=== PATIENT | female | born 1990 | race African-American/Black ===

== ENCOUNTER 2017-08-10 23:46 | Emergency (ER) | payer OTHER ==
[~2017-08-10] VITALS: Ht 162.6 cm; Wt 56.7 kg
[2017-08-11 00:02] VITALS: BP 117/58
--- NOTE | 2017-08-11 00:15 | PHYS DOC ---
Past Medical History Past Medical History: No Pertinent History Past Surgical History: Other Additional Past Surgical Histo: Exploratory laparotomy Alcohol Use: Occasionally Drug Use: None Adult General Chief Complaint Chief Complaint: HIP PAIN HPI HPI Patient is a 26 year old female who presents with a right lateral hip pain began yesterday when she stepped off a ladder at work. Patient works at [employer]. Patient denies falling. Patient states she currently cannot bare full weight on the RLE, she states she is limping. Review of Systems Review of Systems Constitutional: Denies fever or chills [] GI: Denies abdominal pain, nausea, vomiting, bloody stools or diarrhea [] : Denies dysuria or hematuria [] Musculoskeletal: Right lateral hip pain Integument: Denies rash or skin lesions [] Neurologic: Denies headache, focal weakness or sensory changes [] All other systems were reviewed and found to be within normal limits, except as documented in this note. Allergies Allergies Allergies Coded Allergies Type Severity Reaction Last Updated Verified No Known Drug Allergies 05/03/14 No Physical Exam Physical Exam Constitutional: Well developed, well nourished, no acute distress, non-toxic appearance. [] Skin: Warm, dry, no erythema, no rash. [] Back: No tenderness, no CVA tenderness. [] Extremities: Right hip with no obvious deformity. Slight tenderness on palpation of the right lateral hip. Full passive range of motion to the right hip including flexion and extension, internal rotation and external rotation. + 2 right pedal pulse. Cap refill less than 2 seconds the right lower extremity. Sensation intact to the right lower extremity. Neurologic: Alert and oriented X 3, normal motor function, normal sensory function, no focal deficits noted. [] Psychologic: Affect normal, judgement normal, mood normal. [] Current Patient Data Vital Signs Vital Signs Date Time Temp Pulse Resp B/P (MAP) Pulse Ox O2 Delivery O2 Flow Rate FiO2 08/11/17 00:02 98.1 87 16 98 Room Air 98.1 EKG EKG [] Radiology/Procedures Radiology/Procedures [] Course & Med Decision Making Course & Med Decision Making Pertinent Labs and Imaging studies reviewed. (See chart for details) Patient is in the ED right hip pain that began yesterday after stepping off a ladder at work. She likely has right hip muscle strain. Will be discharged with cyclobenzaprine and naproxen. Follow-up with PCP orthopedic doctor provided in one week. Ice recommended to the area. Elevation recommended. Dragon Disclaimer Dragon Disclaimer This electronic medical record was generated, in whole or in part, using a voice recognition dictation system. Departure Departure Impression: Primary Impression: Strain of right hip Disposition: HOME, SELF-CARE Condition: STABLE Referrals: WALT RHODES MD follow up in one week Patient Instructions: Muscle Strain, [id number] Additional Instructions: You were seen with right hip muscle strain. Ice elevate the affected extremity. Take the prescribed medicines as needed for pain. Do not drive or operate machinery on the pain medicine. Follow-up with your own doctor or the provided orthopedic doctor in 1-2 weeks. Scripts Naproxen (NAPROXEN) 500 Mg Tablet 1 TAB PO BID, #30 TAB 0 Refills Prov: CAITIE WHITFIELD APRN 08/11/17 Cyclobenzaprine Hcl (CYCLOBENZAPRINE HCL) 10 Mg Tablet 1 TAB PO TID, #30 TAB Prov: CAITIE WHITFIELD APRN 08/11/17 Problem Qualifiers Primary Impression: Strain of right hip Encounter type: initial encounter Qualified Codes: S76.011A - Strain of muscle, fascia and tendon of right hip, initial encounter CAITIE WHITFIELD APRN Aug 11, 2017 00:15
[2017-08-11] MEDS ORDERED: CYCL10TA2 PO (00:45)
[2017-08-11] MEDS ORDERED: NAPR500T4 PO (00:45)
== END 2017-08-11 00:51 | disposition home or self-care (01) ==
LOC: ER 23:46
DX: S76.011A Strain of muscle, fascia and tendon of right hip, initial encounter (principal); W11.XXXA Fall on and from ladder, initial encounter; Y93.89 Activity, other specified; Y92.69 Other specified industrial and construction area as the place of occurrence of the external cause; Y99.8 Other external cause status
CPT/HCPCS: 99283

== ENCOUNTER 2019-04-09 10:59 | Emergency (ER) | payer SELFPAY ==
[~2019-04-09] VITALS: Ht 162.6 cm; Wt 59.0 kg
[~2019-04-09 10:59] MED LIST: CYCL10TA2 PO; NAPR-514 PO
[2019-04-09] MEDS ORDERED: IV NORMAL SALINE 1000ML BAG 1,000 ML IV ONE ×2 (12:45→15:15)
[2019-04-09] MEDS ORDERED: diphenhydrAMINE 50 MG/ML VIAL IVP ONE (12:45)
[2019-04-09] MEDS ORDERED: METOCLOPRAMIDE 10 MG TABLET. PO ONE (12:45)
[2019-04-09 13:48] LABS: BASO # 0.1 x10^3/uL (0.0-0.2); BASO % 0 % (0-3); EOS # 0.3 x10^3/uL (0.0-0.7); EOS % 2 % (0-3); HEMATOCRIT 40.9 % (36.0-47.0); HEMOGLOBIN 13.8 g/dL (12.0-15.5); LYMPH # 2.5 x10^3/uL (1.0-4.8); LYMPH % 13 % (24-48); MEAN CORPUSCULAR HEMOGLOBIN 31 pg (25-35); MEAN CORPUSCULAR HGB CONC 34 g/dL (31-37); MEAN CORPUSCULAR VOLUME 91 fL (79-100); MONO # 1.3 x10^3/uL (0.0-1.1); MONO % 7 % (0-9); NEUT # 15.2 x10^3/uL (1.8-7.7); NEUT % 78 % (31-73); PLATELET COUNT 299 x10^3/uL (140-400); RED BLOOD COUNT 4.52 x10^6/uL (3.50-5.40); RED CELL DISTRIBUTION WIDTH 12.8 % (11.5-14.5); WHITE BLOOD COUNT 19.4 x10^3/uL (4.0-11.0)
[2019-04-09 13:54] LABS: BILIRUBIN,URINE SMALL (NEG); CLARITY,URINE CLEAR; COLOR,URINE AMBER; NITRITE,URINE NEGATIVE (NEG); PROTEIN,URINE NEGATIVE (NEG-TRACE)
[2019-04-09 13:58] LABS: CREATININE 0.8 mg/dL (0.6-1.0); GFR 104.1; POTASSIUM 3.3 mmol/L (3.5-5.1)
[2019-04-09 14:03] LABS: BACTERIA,URINE 0 /HPF (0-FEW); SQUAMOUS EPITHELIAL CELL,UR MANY /LPF; WBC,URINE >40 /HPF (0-4)
[2019-04-09 14:04] LABS: TRICHOMONAS,URINE PRESENT
[2019-04-09 14:05] LABS: ALBUMIN 3.4 g/dL (3.4-5.0); ALBUMIN/GLOBULIN RATIO 0.8 (1.0-1.7); PREG TEST PT QUAL NEGATIVE (NEG); TOTAL BILIRUBIN 1.2 mg/dL (0.2-1.0); TOTAL PROTEIN 7.7 g/dL (6.4-8.2)
--- NOTE | 2019-04-09 14:10 | RAD ---
CHEST PA LATERAL History: Cough. Comparison: None. Findings: No consolidation or pleural effusion. Normal heart size. Impression: 1. No acute cardiopulmonary process. Electronically signed by: Larry Child DO (04/09/2019 2:08 PM) [id number]
[2019-04-09 14:24] LABS: % BANDS 9 % (0-9); % EOS 2 % (0-5); % LYMPHS 14 % (24-48); % MONOS 8 % (0-10); % SEGS 67 % (35-66); PLT ESTIMATE ADEQUATE (ADEQUATE)
--- NOTE | 2019-04-09 14:27 | PHYS DOC ---
Past Medical History Past Medical History: No Pertinent History Past Surgical History: Other Additional Past Surgical Histo: Exploratory laparotomy Alcohol Use: Occasionally Drug Use: None Adult General Chief Complaint Chief Complaint: HEADACHE HPI HPI 28-year-old female presenting to the emergency department today with a headache. Her headaches been going on for about 2 weeks. She reports having a recent cold. She describes it as a shooting pain that is mild to moderate nonradiating and without alleviating factors. Review of systems is negative for chest pain shortness of breath abdominal pain nausea vomiting fevers or chills. She denies neck stiffness or nuchal rigidity. All other review of systems is negative. ED course: 28-year-old female presenting with a headache. Heart rate is mildly elevated here in the emergency room. Temperature is mildly elevated but not above 100.4. Blood pressure is mildly elevated. Neurologic exam is unremarkable. We will give her IV fluids with Reglan and Benadryl. White blood cell count is elevated. Chemistry panel is normal. Negative test. Urinalysis shows small leuk esterase. Many squamous cells. No bacteria. Trichomonas present. Elev ated specific gravity. Given her headache with her white blood cell count and a low-grade temperature we did a lumbar puncture. Written consent obtained. Head CT negative prior to lumbar puncture. Procedure was performed and we were able to withdraw the fluid and sent it for analysis. CSF fluid is unremarkable and not suggestive of infection. The patient's headache has improved in the emergency department. Given her Trichomonas in the urine we'll give her 2 g of Flagyl x1 here in ED and Zofran to go home with for nausea. Will need her to follow up with her doctor tomorrow given her elevated white blood cell count to reexamine her. Procedure note: Lumbar puncture: The patient is placed in the left lateral decubitus position. Sterile precautions utilized. 3 attempts. Third attempt shows clear fluid. Sterile dressing placed after procedure. no complications. Current Medications Current Medications Current Medications Medications (Trade) Dose Ordered Sig/Vaughn Start Time Stop Time Status Last Admin Dose Admin Acetaminophen (Tylenol) 650 mg 1X ONCE 04/09/19 16:15 04/09/19 16:16 DC 04/09/19 16:07 650 MG Diphenhydramine HCl (Benadryl) 25 mg 1X ONCE 04/09/19 12:45 04/09/19 12:46 DC 04/09/19 13:22 25 MG Metoclopramide HCl (Reglan) 10 mg 1X ONCE 04/09/19 12:45 04/09/19 12:46 DC 04/09/19 13:22 10 MG Sodium Chloride 1,000 ml @ 1,000 mls/hr 1X ONCE 04/09/19 15:15 04/09/19 16:14 DC 04/09/19 15:39 1,000 MLS/HR Allergies Allergies Allergies Coded Allergies Type Severity Reaction Last Updated Verified No Known Drug Allergies 05/03/14 No Physical Exam Physical Exam Constitutional: Well developed, well nourished, no acute distress, non-toxic appearance. [] HENT: Normocephalic, atraumatic, bilateral external ears normal, oropharynx moist, no oral exudates, nose normal. [] Eyes: PERRLA, EOMI, conjunctiva normal, no discharge. [] Neck: Normal range of motion, no tenderness, supple, no stridor. [] Cardiovascular:Heart rate regular rhythm, no murmur [] Lungs & Thorax: Bilateral breath sounds clear to auscultation [] Abdomen: Bowel sounds normal, soft, no tenderness, no masses, no pulsatile masses. [] Skin: Warm, dry, no erythema, no rash. [] Back: No tenderness, no CVA tenderness. [] Extremities: No tenderness, no cyanosis, no clubbing, ROM intact, no edema. [] Neurologic: Alert and oriented X 3, normal motor function, normal sensory function, no focal deficits noted. [] Psychologic: Affect normal, judgement normal, mood normal. [] Current Patient Data Vital Signs Vital Signs Date Time Temp Pulse Resp B/P (MAP) Pulse Ox O2 Delivery O2 Flow Rate FiO2 04/09/19 14:30 108 92 04/09/19 12:35 99.7 18 165/69 (101) Room Air 99.7 Lab Values Laboratory Tests Test 04/09/19 13:20 04/09/19 13:30 04/09/19 13:43 04/09/19 15:30 White Blood Count 19.4 x10^3/uL (4.0-11.0) H Red Blood Count 4.52 x10^6/uL (3.50-5.40) Hemoglobin 13.8 g/dL (12.0-15.5) Hematocrit 40.9 % (36.0-47.0) Mean Corpuscular Volume 91 fL (79-100) Mean Corpuscular Hemoglobin 31 pg (25-35) Mean Corpuscular Hemoglobin Concent 34 g/dL (31-37) Red Cell Distribution Width 12.8 % (11.5-14.5) Platelet Count 299 x10^3/uL (140-400) Neutrophils (%) (Auto) 78 % (31-73) H Lymphocytes (%) (Auto) 13 % (24-48) L Monocytes (%) (Auto) 7 % (0-9) Eosinophils (%) (Auto) 2 % (0-3) Basophils (%) (Auto) 0 % (0-3) Neutrophils # (Auto) 15.2 x10^3/uL (1.8-7.7) H Lymphocytes # (Auto) 2.5 x10^3/uL (1.0-4.8) Monocytes # (Auto) 1.3 x10^3/uL (0.0-1.1) H Eosinophils # (Auto) 0.3 x10^3/uL (0.0-0.7) Basophils # (Auto) 0.1 x10^3/uL (0.0-0.2) Segmented Neutrophils % 67 % (35-66) H Band Neutrophils % 9 % (0-9) Lymphocytes % 14 % (24-48) L Monocytes % 8 % (0-10) Eosinophils % 2 % (0-5) Platelet Estimate Adequate (ADEQUATE) Sodium Level 137 mmol/L (136-145) Potassium Level 3.3 mmol/L (3.5-5.1) L Chloride Level 101 mmol/L (98-107) Carbon Dioxide Level 24 mmol/L (21-32) Anion Gap 12 (6-14) Blood Urea Nitrogen 7 mg/dL (7-20) Creatinine 0.8 mg/dL (0.6-1.0) Estimated GFR (Cockcroft-Gault) 104.1 BUN/Creatinine Ratio 9 (6-20) Glucose Level 103 mg/dL (70-99) H Calcium Level 9.0 mg/dL (8.5-10.1) Total Bilirubin 1.2 mg/dL (0.2-1.0) H Aspartate Amino Transferase (AST) 10 U/L (15-37) L Alanine Aminotransferase (ALT) 11 U/L (14-59) L Alkaline Phosphatase 69 U/L (46-116) Total Protein 7.7 g/dL (6.4-8.2) Albumin 3.4 g/dL (3.4-5.0) Albumin/Globulin Ratio 0.8 (1.0-1.7) L Serum Test, Qualitative Negative (NEG) Urine Collection Type Unknown Urine Color Ruchi Urine Clarity Clear Urine pH 6.0 Urine Specific Malcolm >=1.030 Urine Protein Negative mg/dL (NEG-TRACE) Urine Glucose (UA) Negative mg/dL (NEG) Urine Ketones (Stick) Trace mg/dL (NEG) Urine Blood Negative (NEG) Urine Nitrite Negative (NEG) Urine Bilirubin Small (NEG) Urine Urobilinogen Dipstick 1.0 mg/dL (0.2 mg/dL) Urine Leukocyte Esterase Small (NEG) Urine RBC 3-5 /HPF (0-2) Urine WBC >40 /HPF (0-4) Urine Squamous Epithelial Cells Many /LPF Urine Bacteria 0 /HPF (0-FEW) Urine Mucus Marked /LPF Urine Trichomonas Present POC Urine HCG, Qualitative Hcg negative (Negative) CSF Color Colorless CSF Clarity Clear CSF WBC 0 /cmm (Not Established) CSF RBC 0 /cmm (Not Established) CSF Glucose 65 mg/dL (37-70) CSF Total Protein 30.5 mg/dL (15.0-45.0) Laboratory Tests 04/09/19 13:20 Laboratory Tests 04/09/19 13:20 EKG EKG [] Radiology/Procedures Radiology/Procedures [] Course & Med Decision Making Course & Med Decision Making Pertinent Labs and Imaging studies reviewed. (See chart for details) [] Dragon Disclaimer Dragon Disclaimer This electronic medical record was generated, in whole or in part, using a voice recognition dictation system. Departure Departure Impression: Primary Impression: Headache Additional Impression: Trichomoniasis Disposition: 01 HOME, SELF-CARE Condition: STABLE Referrals: NO PCP (PCP) ABNER GONZALEZ MD Patient Instructions: General Headache Without Cause, Trichomoniasis Additional Instructions: Thank you for allowing us to participate in your care today. Return to the emergency department you have any new or worsening symptoms, or if you are concerned for any reason. Return to emergency department if you have any new or concerning symptoms including but not limited to fever, chills, nausea, vomiting, intractable pain, any new rashes, chest pain, shortness of air, uncontrolled bleeding, difficulty breathing, and/or vision loss. Follow up with your primary care physician within 1 day. Call your Primary Doctor tomorrow and inform them of your visit today. If you do not have a primary care provider we are happy to provide you with a list of our primary care providers contact information. This condition should be evaluated by your primary care physician and any recommended consulting services for continued management within 2 days after discharge. If at any time, you are having difficulty getting into your primary care doctor or a specialist, return to the emergency department. Scripts Ondansetron Hcl (ZOFRAN) 4 Mg Tablet 1 TAB PO PRN Q6-8HRS, #5 TAB Prov: MARISOL SANCHEZ MD 04/09/19 Problem Qualifiers MARISOL SANCHEZ MD Apr 09, 2019 14:27
--- NOTE | 2019-04-09 14:57 | RAD ---
Examination: CT HEAD WO CONTRAST History: Headache Comparison/Correlation: None Findings: Axial images of the head were obtained without contrast. Sagittal and coronal reformatted images provided. Ventricles are normal size. No intracranial hemorrhage, midline shift, or mass effect. Punctate density at the superior aspect of the third ventricle measuring 0.2 cm diameter is present. Bony structures are unremarkable. Visualized paranasal sinuses are unremarkable. Impression: No intracranial hemorrhage. 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 No suspicious features. No hydrocephalus. PQRS Compliance Statement: One or more of the following individualized dose reduction techniques were utilized for this examination: 1. Automated exposure control 2. Adjustment of the mA and/or kV according to patient size 3. Use of iterative reconstruction technique Electronically signed by: Pedro Beasley MD (04/09/2019 2:55 PM) [facility]
[2019-04-09 16:03] LABS: CSF PROTEIN 30.5 mg/dL (15.0-45.0)
[2019-04-09 16:14] LABS: CSF CLARITY CLEAR; CSF COLOR COLORLESS; CSF RBC COUNT 0 /cmm (Not Established); CSF WBC COUNT 0 /cmm (Not Established)
[2019-04-09] MEDS ORDERED: ACETAMINOPHEN 325 MG TABLET. PO ONE (16:15)
[2019-04-09] MEDS ORDERED: ONDA4TAB7 PO (16:49)
[2019-04-09] MEDS ORDERED: metroNIDAZOLE 500 MG TABLET PO ONE (17:00)
[2019-04-09 17:08] VITALS: BP 120/63
== END 2019-04-09 17:11 | disposition home or self-care (01) ==
LOC: ER 10:59
DX: R51 Headache (principal); A59.9 Trichomoniasis, unspecified
CPT/HCPCS: 36415; 62270; 70450; 71046; 80053; 81001; 81025; 82945; 84157; 84703; 85007; 85025; 87071; 87075; 89051; 96374; 99285; J1200; J7030; J8597

== ENCOUNTER 2019-08-27 21:15 | Emergency (ER) | payer SELFPAY ==
[~2019-08-27] VITALS: Ht 162.6 cm; Wt 63.5 kg
[~2019-08-27 21:15] MED LIST changes: +ONDA4TAB7 PO
[2019-08-27 21:25] VITALS: BP 111/64
--- NOTE | 2019-08-27 22:26 | PHYS DOC ---
Past Medical History Past Medical History: No Pertinent History (ABNER GARCIA APRN) Past Surgical History: Other Additional Past Surgical Histo: Exploratory laparotomy (ABNER GARCIA APRN) Alcohol Use: Occasionally Drug Use: None (ABNER GARCIA APRN) Attending Signature I have participated in the care of this patient and I have reviewed and agree with all pertinent clinical information above including history, exam, and recommendations. (KRISTINA CASTILLO MD) Adult General Chief Complaint Chief Complaint: FLU SYMPTOM HPI HPI Patient is a 28 year old female who presents with headache, loss of appetite, nausea, vomiting, sore throat, runny nose, cough that started at 3 days ago. She has been able to keep fluids down at home. (ABNER GARCIA APRN) Review of Systems Review of Systems Constitutional: Reports fever or chills and body aches. Eyes: Denies change in visual acuity, redness, or eye pain [] HENT: Reports nasal congestion, sore throat, and runny nose. Respiratory: Reports cough. Denies shortness of breath. Cardiovascular: No additional information not addressed in HPI [] GI: Reports nausea. Denies abdominal pain, bloody stools or diarrhea [] : Denies dysuria or hematuria [] Musculoskeletal: Denies back pain or joint pain [] Integument: Denies rash or skin lesions [] Neurologic: Reports headache, denies focal weakness or sensory changes [] Endocrine: Denies polyuria or polydipsia [] Complete systems were reviewed and found to be within normal limits, except as documented in this note. (ABNER GARCIA APRN) Allergies Allergies Allergies Coded Allergies Type Severity Reaction Last Updated Verified No Known Drug Allergies 05/03/14 No (KRISTINA CASTILLO MD) Physical Exam Physical Exam Constitutional: Well developed, well nourished, no acute distress, non-toxic appearance. [] HENT: Normocephalic, atraumatic, bilateral external ears normal, bilateral tympanic membranes are pearly amos, oropharynx moist, no oral exudates, nose turbinates are inflamed. Eyes: PERRLA, EOMI, conjunctiva normal, no discharge. [] Neck: Normal range of motion, no tenderness, supple, no stridor. [] Cardiovascular:Heart rate regular rhythm, no murmur [] Lungs & Thorax: Bilateral breath sounds clear to auscultation [] Abdomen: Bowel sounds normal, soft, no tenderness, no masses, no pulsatile masses. [] Skin: Warm, dry, no erythema, no rash. [] Neurologic: Alert and oriented X 3, normal motor function, normal sensory function, no focal deficits noted. [] Psychologic: Affect normal, judgement normal, mood normal. [] (ABNER GARCIA APRN) Current Patient Data Vital Signs Vital Signs Date Time Temp Pulse Resp B/P (MAP) Pulse Ox O2 Delivery O2 Flow Rate FiO2 08/27/19 21:25 99.3 97 16 111/64 (80) 98 Room Air 99.3 (KRISTINA CASTILLO MD) EKG EKG [] (ABNER GARCIA APRN) Radiology/Procedures Radiology/Procedures [] (ABNER GARCIA APRN) Course & Med Decision Making Course & Med Decision Making Pertinent Labs and Imaging studies reviewed. (See chart for details) The patient appears to have the Flu clinically. Discussed with patient the i mportance of drinking plenty of fluids. I also discussed the importance of rest. It was discussed with the patient that she is contagious and to stay away from others until it has been a week since the start of her symptoms. Discussed with the patient that she can take Zyrtec per label instructions for runny nose. Also discussed the proper control of fever by rotating Tylenol and Ibuprofen at home. Will give the patient Decadron in the ER for symptom control. A medical screening exam was performed on this patient and the patient does not appear to be having a medical emergency. Her symptoms are not of sufficient severity and within reasonable medical probability it is unlikely the absence of immediate medical attention would result in placing the health of the individual (or, with respect to a woman, the health of the woman or her unborn child) in serious jeopardy, serious impairment to bodily functions, or serious dysfunction of any bodily organ or part. If , the patient is not in labor (ABNER GARCIA APRN) Dragon Disclaimer Dragon Disclaimer This electronic medical record was generated, in whole or in part, using a voice recognition dictation system. (ABNER GARCIA APRN) Departure Departure Impression: Primary Impression: Encounter for medical screening examination Additional Impression: Viral syndrome Disposition: HOME, SELF-CARE Condition: STABLE Referrals: NO PCP (PCP) Patient Instructions: Medical Screening Exam, Viral Syndrome Additional Instructions: Thank you for visiting [facility]. We appreciate you trusting us with your care. If any additional problems come up don't hesitate to return to visit us. Please follow up with your primary care provider so they can plan additional care if needed and know about the problem that you had. If symptoms worsen come back to the Emergency Department. Any concerning symptoms that start such as chest pain, shortness of air, weakness or numbness on one side of the body, running high fevers or any other concerning symptoms return to the ER. Please drink plenty of fluids. If unable to keep fluids down please return to ER. Please get Tylenol and Ibuprofen over the counter. Give each medication every 6 hours as directed by the medication labels. In order to utilize the peak of the medications stagger the medications to where the child is getting one of the medications every 3 hours. For example if you give Ibuprofen at 3 PM, you then give Tylenol at 6 PM and Ibuprofen again at 9 PM, and then Tylenol at midnight. Please get Zyrtec over the counter and take per label instructions for runny nose. Problem Qualifiers ABNER GARCIA APRN Aug 27, 2019 22:26 KRISTINA CASTILLO MD Aug 29, 2019 02:53
== END 2019-08-27 22:44 | disposition home or self-care (01) ==
LOC: ER 21:15
DX: B34.9 Viral infection, unspecified (principal); R09.89 Other specified symptoms and signs involving the circulatory and respiratory systems; R05 Cough; R63.0 Anorexia; Z98.890 Other specified postprocedural states
CPT/HCPCS: 99281

== ENCOUNTER 2020-05-21 15:26 | Inpatient (IN) | payer SELFPAY ==
[~2020-05-21] VITALS: Ht 162.6 cm; Wt 64.0 kg
[2020-05-21] MEDS ORDERED: IV NORMAL SALINE 1000ML BAG 1,000 ML IV ONE ×2 (15:45→16:45)
[2020-05-21] MEDS ORDERED: IPRATRPIUM/ALBUTEROL 0.5/2.5MG 3 ML NEBU. NEB ONE (15:45)
[2020-05-21] MEDS ORDERED: methylPREDNISolone SOD SUCC PF 125 MG/2 ML VIAL. IV ONE (15:45)
[2020-05-21] MEDS ORDERED: MAGNESIUM SULFATE 2GM 50 ML IV ONE (15:45)
[2020-05-21 15:51] LABS: BASO # 0.1 x10^3/uL (0.0-0.2); BASO % 1 % (0-3); EOS # 0.4 x10^3/uL (0.0-0.7); EOS % 3 % (0-3); HEMOGLOBIN 14.4 g/dL (12.0-15.5); LYMPH # 0.8 x10^3/uL (1.0-4.8); LYMPH % 6 % (24-48); MEAN CORPUSCULAR HEMOGLOBIN 32 pg (25-35); MEAN CORPUSCULAR HGB CONC 34 g/dL (31-37); MEAN CORPUSCULAR VOLUME 92 fL (79-100); MONO # 0.6 x10^3/uL (0.0-1.1); MONO % 4 % (0-9); NEUT % 87 % (31-73); PLATELET COUNT 258 x10^3/uL (140-400); RED BLOOD COUNT 4.56 x10^6/uL (3.50-5.40); WHITE BLOOD COUNT 13.9 x10^3/uL (4.0-11.0)
--- NOTE | 2020-05-21 15:52 | PHYS DOC ---
Past Medical History Past Medical History: No Pertinent History Past Surgical History: Other Additional Past Surgical Histo: Exploratory laparotomy Smoking Status: Current Every Day Smoker Alcohol Use: Occasionally Drug Use: None General Adult EDM: Chief Complaint: ASTHMA HPI: HPI: The history was obtained from the patient. Patient is a 29-year-old female with PMH asthma who presents with a chief complaint of shortness of breath and wheezing. Patient states her symptoms began earlier today. She states environmental exposures are typically her triggers. She does note that she uses inhaler daily. Denies any recent oral steroids or antibiotic usage. Does note history of hospitalization due to her breathing issues in the past. Denies any history of ventilator requirement. Denies chest pain. Does note increased cough with mild sputum production. Notes nausea without vomiting. Denies syncope. Denies known exposure to coronavirus. No other complaints. Review of Systems: Review of Systems: Constitutional: Denies fever or chills. [] Eyes: Denies change in visual acuity. [] HENT: Denies nasal congestion or sore throat. [] Respiratory: Denies coug positive for shortness of breath and cough Cardiovascular: Denies chest pain or edema. [] GI: Denies abdominal pain, nausea, vomiting, bloody stools or diarrhea. [] : Denies dysuria. [] Musculoskeletal: Denies back pain or joint pain. [] Integument: Denies rash. [] Neurologic: Denies headache, focal weakness or sensory changes. [] Endocrine: Denies polyuria or polydipsia. [] Lymphatic: Denies swollen glands. [] Psychiatric: Denies depression or anxiety. [] Heart Score: Risk Factors: Risk Factors: DM, Current or recent (<one month) smoker, HTN, HLP, family history of CAD, obesity. Risk Scores: Score 0 - 3: 2.5% MACE over next 6 weeks - Discharge Home Score 4 - 6: 20.3% MACE over next 6 weeks - Admit for Clinical Observation Score 7 - 10: 72.7% MACE over next 6 weeks - Early Invasive Strategies Current Medications: Current Medications Medications (Trade) Dose Ordered Sig/Vaughn Start Time Stop Time Status Last Admin Dose Admin Albuterol/ Ipratropium (Duoneb) 9 ml 1X ONCE 05/21/20 15:45 05/21/20 15:46 Magnesium Sulfate 50 ml @ 50 mls/hr 1X ONCE 05/21/20 15:45 05/21/20 16:44 Methylprednisolone Sodium Succinate (SOLU-Medrol 125MG VIAL) 125 mg 1X ONCE 05/21/20 15:45 05/21/20 15:46 Sodium Chloride 1,000 ml @ 1,000 mls/hr 1X ONCE 05/21/20 15:45 05/21/20 16:44 Allergies: Allergies: Allergies Coded Allergies Type Severity Reaction Last Updated Verified No Known Drug Allergies 05/03/14 No Physical Exam: PE: Constitutional: Well developed, well nourished, no acute distress, non-toxic appearance. [] HENT: Normocephalic, atraumatic, bilateral external ears normal, oropharynx moist, no oral exudates, nose normal. [] Eyes: PERRLA, EOMI, conjunctiva normal, no discharge. [] Neck: Normal range of motion, no tenderness, supple, no stridor. [] Cardiovascular:Heart rate regular rhythm, no murmur [] Lungs & Thorax: Inspiratory and expiratory wheezes noted bilaterally. Tachypneic. Fair aeration. Abdomen: soft, no tenderness, no masses, no pulsatile masses. [] Skin: Warm, dry, no erythema, no rash. [] Back: No tenderness, no CVA tenderness. [] Extremities: No tenderness, no cyanosis, no clubbing, ROM intact, no edema. [] Neurologic: Alert and oriented X 3, normal motor function, normal sensory function, no focal deficits noted. [] Psychologic: Affect normal, judgement normal, mood normal. [] Current Patient Data: Labs: Laboratory Tests Test 05/21/20 15:42 White Blood Count 13.9 x10^3/uL Red Blood Count 4.56 x10^6/uL Hemoglobin 14.4 g/dL Hematocrit 42.0 % Mean Corpuscular Volume 92 fL Mean Corpuscular Hemoglobin 32 pg Mean Corpuscular Hemoglobin Concent 34 g/dL Red Cell Distribution Width 13.0 % Platelet Count 258 x10^3/uL Neutrophils (%) (Auto) 87 % Lymphocytes (%) (Auto) 6 % Monocytes (%) (Auto) 4 % Eosinophils (%) (Auto) 3 % Basophils (%) (Auto) 1 % Neutrophils # (Auto) 12.0 x10^3/uL Lymphocytes # (Auto) 0.8 x10^3/uL Monocytes # (Auto) 0.6 x10^3/uL Eosinophils # (Auto) 0.4 x10^3/uL Basophils # (Auto) 0.1 x10^3/uL Segmented Neutrophils % 86 % Band Neutrophils % 3 % Lymphocytes % 5 % Monocytes % 4 % Eosinophils % 2 % Toxic Granulation Slight Toxic Vacuolation Slight Platelet Estimate Adequate Maternal Serum HCG Beta Subunit < 1 mIU/mL Sodium Level 137 mmol/L Potassium Level 3.5 mmol/L Chloride Level 102 mmol/L Carbon Dioxide Level 26 mmol/L Anion Gap 9 Blood Urea Nitrogen 6 mg/dL Creatinine 0.7 mg/dL Estimated GFR (Cockcroft-Gault) 120.6 Glucose Level 105 mg/dL Lactic Acid Level 1.0 mmol/L Calcium Level 9.0 mg/dL Current Medications Medications (Trade) Dose Ordered Sig/Vaughn Route PRN Reason Start Time Stop Time Status Last Admin Dose Admin Sodium Chloride 1,000 ml @ 1,000 mls/hr 1X ONCE IV 05/21/20 15:45 05/21/20 16:44 DC 05/21/20 15:53 Albuterol/ Ipratropium (Duoneb) 9 ml 1X ONCE NEB 05/21/20 15:45 05/21/20 15:46 DC 05/21/20 15:45 Methylprednisolone Sodium Succinate (SOLU-Medrol 125MG VIAL) 125 mg 1X ONCE IV 05/21/20 15:45 05/21/20 15:46 DC 05/21/20 15:52 Magnesium Sulfate 50 ml @ 50 mls/hr 1X ONCE IV 05/21/20 15:45 05/21/20 16:44 DC 05/21/20 15:52 Albuterol Sulfate (Ventolin Neb Soln) 7.5 mg 1X ONCE NEB 05/21/20 16:30 05/21/20 16:31 DC 05/21/20 16:35 Ondansetron HCl (Zofran) 4 mg STK-MED ONCE .ROUTE 05/21/20 16:18 05/21/20 16:18 DC Ondansetron HCl (Zofran) 4 mg 1X ONCE IVP 05/21/20 16:30 05/21/20 16:31 DC 05/21/20 16:23 Sodium Chloride 1,000 ml @ 1,000 mls/hr 1X ONCE IV 05/21/20 16:45 05/21/20 17:44 Azithromycin 250 ml @ 250 mls/hr 1X ONCE IV 05/21/20 16:45 05/21/20 17:44 Ceftriaxone Sodium (Rocephin) 1 gm 1X ONCE IVP 05/21/20 16:45 05/21/20 16:46 DC Vital Signs: Vital Signs Date Time Temp Pulse Resp B/P (MAP) Pulse Ox O2 Delivery O2 Flow Rate FiO2 05/21/20 16:35 94 Nasal Cannula 2.0 05/21/20 15:53 93 Nasal Cannula 2.0 05/21/20 15:30 99.8 127 32 143/90 (107) Nasal Cannula 2.0 99.8 EKG: EKG: [] EKG consistent with sinus tachycardia. Ventricular rate of 160 bpm. [place] normal. Intervals normal. No acute ischemic changes noted. Radiology/Procedures: Radiology/Procedures: [facility] [address] [place], [place] [id number] IMAGING REPORT Signed PATIENT: MARYCHUY LOMAX ACCOUNT: [id number] : 1990 LOCATION: ER AGE: 29 SEX: F EXAM STATUS: PRE ER ORD. PHYSICIAN: GERALDINE CLAY DO REASON: SOB PROCEDURE: CHEST AP ONLY EXAMINATION: CHEST AP ONLY CLINICAL HISTORY: Shortness of breath EXAM DATE/TIME: 05/21/2020 3:37 PM COMPARISON: None FINDINGS: Lines, Tubes, and Devices: None. Cardiomediastinal Silhouette: Within normal limits. Lungs and Pleura: Patchy opacities in the right lower lung zone. Left lung appears clear. No pleural effusion or pneumothorax. Bones and Soft Tissues: No acute osseous abnormality. IMPRESSION: Patchy airspace disease in the right lower lung zone concerning for infection. Electronically signed by: Max Reyna DO (05/21/2020 4:14 PM) [id number] DICTATED and SIGNED BY: MAX REYNA DO DATE: 05/21/20 1614 Course & Med Decision Making: Course & Med Decision Making Pertinent Labs and Imaging studies reviewed. (See chart for details) Patient is an uncomfortable appearing 29-year-old female presents with chief complaint of shortness of breath with productive cough. Initial vital signs notable for tachycardia. Wheezes and crackles noted in the bases bilaterally. Chest x-ray does show concern for potential right lower lobe infiltrate. She was given duo nebs. Given the acuity of her respiratory distress 2 g magnesium was also administered. On repeat examination she still shows signs of increased work of breathing. Given her abnormal chest x-ray findings Rocephin and azithromycin were administered. COVID swab obtained and pending. Additional albuterol treatments administered. I do feel she would benefit from hospitalization given her underlying lung disease with potential for acute infection. Remainder of labs grossly unremarkable. Patient has remained clinically stable while in the emergency department. No oxygen requirement at this time. COVID-19 CRITERIA: The patient was evaluated during the global COVID-19 pandemic, and that diagnosis was suspected/considered upon their initial presentation. Their evaluation, treatment and testing was consistent with current guidelines for patients who present with complaints or symptoms that may be related to COVID-19. [] Dragon Disclaimer: Dragelver Disclaimer: This electronic medical record was generated, in whole or in part, using a voice recognition dictation system. Departure Departure Impression: Primary Impression: Right lower lobe pneumonia Qualified Codes: J18.9 - Pneumonia, unspecified organism Additional Impression: Asthma Qualified Codes: J45.909 - Unspecified asthma, uncomplicated Disposition: ADMITTED INPATIENT Condition: STABLE Referrals: NO PCP (PCP) Justicifation of Admission Dx: Justifications for Admission: Justification of Admission Dx: Yes Comments: pneumonia with asthma GERALDINE CLAY DO May 21, 2020 15:52
[2020-05-21 16:00] LABS: CREATININE 0.7 mg/dL (0.6-1.0); GFR 120.6; POTASSIUM 3.5 mmol/L (3.5-5.1)
[2020-05-21 16:10] LABS: % BANDS 3 % (0-9); % EOS 2 % (0-5); % LYMPHS 5 % (24-48); % MONOS 4 % (0-10); % SEGS 86 % (35-66); PLT ESTIMATE ADEQUATE (ADEQUATE)
[2020-05-21 16:11] LABS: TOXIC GRANULATION SLIGHT
[2020-05-21 16:12] LABS: TOXIC VACUOLATION SLIGHT
--- NOTE | 2020-05-21 16:17 | RAD ---
EXAMINATION: CHEST AP ONLY CLINICAL HISTORY: Shortness of breath EXAM DATE/TIME: 05/21/2020 3:37 PM COMPARISON: None FINDINGS: Lines, Tubes, and Devices: None. Cardiomediastinal Silhouette: Within normal limits. Lungs and Pleura: Patchy opacities in the right lower lung zone. Left lung appears clear. No pleural effusion or pneumothorax. Bones and Soft Tissues: No acute osseous abnormality. IMPRESSION: Patchy airspace disease in the right lower lung zone concerning for infection. Electronically signed by: Max Ruiz DO (05/21/2020 4:14 PM) [id number]
[2020-05-21] MEDS ORDERED: ONDANSETRON PF 4 MG/2 ML VIAL. ONE (16:18)
--- NOTE | 2020-05-21 16:21 | EKG ---
[facility] [address] [place] [address] Test Date: 2020-05-21 Test Time: 15:49:24 Pat Name: MARYCHUY LOMAX Department: Room: Gender: F Operations Research Engineer: : 1990 Requested By: GERALDINE CLAY Order Number: [id number] Reading MD: Measurements Intervals [place] Rate: 116 P: 73 [place]: 176 QRS: 86 QRSD: 76 T: 58 QT: 298 QTc: 414 Interpretive Statements SINUS TACHYCARDIA LEFT ATRIAL ABNORMALITY QRS(T) CONTOUR ABNORMALITY CONSISTENT WITH ANTEROSEPTAL MYOCARDIAL DAMAGE ABNORMAL ECG RI6.02 No previous ECG available for comparison
[2020-05-21] MEDS ORDERED: ONDANSETRON PF 4 MG/2 ML VIAL. IVP ONE (16:30)
[2020-05-21] MEDS ORDERED: ALBUTEROL SULFATE 2.5 MG/3 ML NEBU. NEB ONE (16:30)
[2020-05-21] MEDS ORDERED: cefTRIAXone IV Push 1 GM VIAL. IVP ONE (16:45)
[2020-05-21] MEDS ORDERED: AZITHRMYCN 500MG IVPB FOR OMNI 250 ML IV ONE (16:45)
[2020-05-21] MEDS ORDERED: ONDANSETRON PF 4 MG/2 ML VIAL. IV PRN (17:15)
[2020-05-21] MEDS ORDERED: HYDROcodone/APAP 5/325MG 1 TAB TABLET PO ONE (17:30)
[2020-05-21 18:45] VITALS: BP 144/67
[2020-05-21] MEDS ORDERED: PIP/TAZO PER PHARMACY MC PRN (20:00)
--- NOTE | 2020-05-21 20:11 | HP ---
ADMIT DATE: 05/21/2020 CHIEF COMPLAINT: Shortness of breath. 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 Basically, she has a previous history of asthma and smokes daily. She called the ambulance today because she was short of breath. They gave her some breathing treatments and they left. She then called them back a couple of hours later. She states normally environmental exposures are what triggers her asthma. While in the ER, we got a chest x-ray showing a possible right lower lobe pneumonia. She rates her symptoms at 9/10. She has associated weakness, has been occurring for several hours, moving makes it worse, sitting still makes it better. She tried increasing her home meds, but that did not work. I discussed the case with the ER physician. We are going to admit the patient. I am going to consult Dr. Hassan of the Pulmonary Service. PAST MEDICAL HISTORY: Asthma and tobacco abuse. ALLERGIES: None. FAMILY HISTORY: Diabetes. SOCIAL HISTORY: She smokes. Works at [email or web address] as a assistant head cashier. Social drinker. No drugs. MEDICATIONS: Reviewed, please refer to the MRAD. REVIEW OF SYSTEMS: GENERAL: No history of weight change, weakness or fevers. SKIN: No bruising, hair changes or rashes. EYES: No blurred, double or loss of vision. NOSE AND THROAT: No history of nosebleeds, hoarseness or sore throat. HEART: No history of palpitations, chest pain or shortness of breath on exertion. PULMONARY: The patient complains of shortness of breath. GASTROINTESTINAL: Denies changes in appetite, nausea, vomiting, diarrhea or constipation. GENITOURINARY: No history of frequency, urgency, hesitancy or nocturia. NEUROLOGIC: Denies history of numbness, tingling, tremor or weakness. PSYCHIATRIC: No history of panic, anxiety or depression. ENDOCRINE: No history of heat or cold intolerance, polyuria or polydipsia. EXTREMITIES: Denies muscle weakness, joint pain, pain on walking or stiffness. PHYSICAL EXAMINATION: VITALS: Within normal limits and are stable. GENERAL: She is tachypneic and appears weak. HEENT: Normal cephalic atraumatic, external auditory canals are patent EYES: Extraocular muscles are intact, pupils are equally round and reactive to light and accommodation MUSCULOSKELETAL: Well developed, well nourished, good range of motion ENDOCRINE: No thyromegaly was palpated LYMPHATICS: No cervical chain or axillary nodes were noted HEMATOPOIETIC: No bruising NECK: Supple, no JVD, no thyromegaly was noted. LUNGS: Diffuse wheezing with tachypnea at 30 respirations per minute. CARDIAC: She has tachycardia. S1 and S2. ABDOMEN: Soft, nontender. Positive bowel sounds no organomegaly, normal bowel sounds. EXTREMITIES: Without any cyanosis, clubbing, or edema. Pedal pulses intact, Homans sign is negative. NEUROLOGIC: She is alert and oriented, but very weak. PSYCHIATRIC: She looks depressed. SKIN: No ulcerations or rashes, good skin turgor, no jaundice. VASCULAR: Good capillary refill, neurovascular bundle appears to be intact. LABORATORY DATA: White count 13.9, hemoglobin 14.4, platelets 258. Electrolytes are normal. ABG is pending. HCG was negative. DIAGNOSTIC DATA: Chest x-ray shows right lower lobe pneumonia. ASSESSMENT AND PLAN: Respiratory failure, multifactorial including possible COVID-19. Right lower lobe pneumonia and asthma. The patient has been admitted. We will start IV antibiotics, breathing treatments, oxygen, beta agonist. Consult Pulmonary. Home medications. Deep venous thrombosis prophylaxis. Full code. PROGNOSIS: Guarded. Critical care time 31 minutes. YONI TAN DO DR: LADAN/angela JOB#: [id number] / [id number]
[2020-05-21 20:32] VITALS: BP 112/75
[2020-05-21] MEDS ORDERED: ALBU2.5V14 NEB (20:41)
[2020-05-21] MEDS ORDERED: ALBU2.5V8 INH (20:41)
[2020-05-21] MEDS ORDERED: FLUT1DIS3 IH (20:41)
--- NOTE | 2020-05-21 20:59 | CONS ---
DATE OF CONSULTATION: 05/21/2020 PULMONARY CONSULTATION ATTENDING PHYSICIAN: Dr. Alcocer. REASON FOR CONSULTATION: Dyspnea, asthma exacerbation, pneumonia. HISTORY OF PRESENT ILLNESS: The patient is a 29-year-old female who has history of asthma as a child. She then outgrew it and then asthma returned in her adult life. 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 The patient was brought into the hospital because of shortness of breath. She states she also has a cough with some yellow sputum production. She has been having fevers since hospitalization. I have reviewed the patient's chest x-ray. There is a focal tiny consolidation in the right lower lobe along with faint interstitial markings in the lower lobes. The patient states that she was wheezing as well. 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 COVID test is pending. I have done consultation via telemedicine. The patient has been placed on IV Solu-Medrol along with IV Zosyn. She did receive albuterol nebulizer. Consultation was done via telemedicine. PAST MEDICAL HISTORY: History of asthma and tobacco abuse. PAST SURGICAL HISTORY: No recent surgeries. FAMILY HISTORY: Diabetes. SOCIAL HISTORY: She smokes cigarettes. 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 No drugs. ALLERGIES: None. MEDICATIONS: Reviewed as listed in the MRAD. REVIEW OF SYSTEMS: As discussed in my history of present illness. A 12-point system obtained. This was done via telemedicine. Pertinent positives discussed in my history of present illness. PHYSICAL EXAMINATION: GENERAL: She appears to be mildly tachypneic. VITAL SIGNS: Her T-max is 100.5. Pulse ox 96% on 2 liters. Visual exam performed. Blood pressure is stable. Her respirations are in the low 20s. They were in the low 30s earlier. There is no paradoxical breathing. SKIN: With no obvious rash. LABORATORY DATA: Reviewed. White cell count 13.9, hemoglobin 14.4 and platelets are 258. BUN is 6 and a creatinine of 0.7. Lactic acid 1.0. IMPRESSION: 1. Acute hypoxic respiratory failure secondary to acute asthma exacerbation and pneumonia. The pneumonia could be COVID-19 viral pneumonia versus bacterial pneumonia. 2. Abnormal chest x-ray with faint basal interstitial infiltrates and also a tiny focal consolidation in the right lower lobe. Findings are suggestive of viral pneumonia, but bacterial pneumonia would also be a consideration. COVID-19 is suspected. 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 3. History of asthma as a child. She then outgrew it and then asthma reoccurred in her adult life and has been under suboptimal control. 4. History of tobacco use. RECOMMENDATIONS: 1. I have discussed with the patient and RN. At this time, we will continue with present nasal cannula at 2 liters, keep saturations 96 and above. 2. Continue COVID-19 isolation. 3. Continue IV Solu-Medrol. 4. Continue empiric antibiotics. 5. Add MDI until COVID is ruled out and once COVID ruled out, then we will initiate nebulizers. 6. We will closely watch the patient's respiratory status. If there is any deterioration in her clinical status or oxygen requirement increases then we will transfer to the ICU. 7. Discussed with RN. Chart reviewed, imaging studies reviewed and labs reviewed. MARY EVERETT MD DR: RAÚL/angela JOB#: [id number] / [id number]
[2020-05-21] MEDS: IPRATROPIUM/ALBUTEROL 20/100mcg/INH INHALER. INH SCH (21:23)
[2020-05-21] MEDS: methylPREDNISolone SOD SUCC PF 40 MG/ML VIAL. IV SCH (21:24)
[2020-05-21] MEDS ORDERED: HYDROcodone/APAP 5/325MG 1 TAB TABLET PO PRN (22:30)
[2020-05-21 23:00] VITALS: BP 128/71
[2020-05-22] VITALS (7 sets, daily range): BP systolic 115–142; BP diastolic 62–84
[2020-05-22] MEDS: PIPERACILLIN/TAZOBACTAM 3.375 GM in IV NORMAL SALINE 50ML 50 ML IV SCH ×5 (00:04→23:27)
[2020-05-22] MEDS: guaiFENesin/CODEINE 100mg/10mg 5 ML LIQUID PO PRN ×2 (00:05→20:49)
[2020-05-22 03:30] LABS: BASO % 0 % (0-3); EOS % 0 % (0-3); HEMATOCRIT 37.6 % (36.0-47.0); HEMOGLOBIN 12.8 g/dL (12.0-15.5); LYMPH # 0.4 x10^3/uL (1.0-4.8); LYMPH % 4 % (24-48); MEAN CORPUSCULAR HEMOGLOBIN 32 pg (25-35); MEAN CORPUSCULAR HGB CONC 34 g/dL (31-37); MEAN CORPUSCULAR VOLUME 94 fL (79-100); MONO # 0.2 x10^3/uL (0.0-1.1); MONO % 1 % (0-9); NEUT # 10.8 x10^3/uL (1.8-7.7); NEUT % 95 % (31-73); PLATELET COUNT 231 x10^3/uL (140-400); RED BLOOD COUNT 4.02 x10^6/uL (3.50-5.40); RED CELL DISTRIBUTION WIDTH 12.8 % (11.5-14.5); WHITE BLOOD COUNT 11.3 x10^3/uL (4.0-11.0)
[2020-05-22 03:36] LABS: CALCIUM 8.5 mg/dL (8.5-10.1); CREATININE 0.9 mg/dL (0.6-1.0); GFR 90.2
--- NOTE | 2020-05-22 08:37 | PDOC ---
[employer] PROGRESS NOTE Date of Service DOS: DATE: 05/22/20 TIME: 08:32 Chief Complaint Chief Complaint CAP Asthma Exacerbation A/P: Respiratory failure multifactorial including possible COVID-19, right lower lobe pneumonia, and asthma IV antibiotics, breathing treatments, oxygen, beta agonist Consult Pulmonary Home medications Deep venous thrombosis prophylaxis Full code. History of Present Illness History of Present Illness Patient evaluated bedside. She is currently breathing well on 2 L nasal cannula. She denies any fevers today. COVID-19 results pending. Vitals/I&O Vitals/I&O: Vital Signs Date Time Temp Pulse Resp B/P (MAP) Pulse Ox O2 Delivery O2 Flow Rate FiO2 05/22/20 03:00 98.6 96 18 129/62 (84) 96 Nasal Cannula 2.0 98.6 I & O 05/21/20 05/21/20 05/22/20 15:00 23:00 07:00 Intake Total 1050 ml Output Total 0 ml Balance 1050 ml 0 ml Physical Exam General: Alert, Oriented X3, Cooperative Heart: Regular rate Lungs: Other (No increased work of breathing) Abdomen: Normal bowel sounds, Soft Extremities: No clubbing, No cyanosis Skin: No rashes Labs Labs: Laboratory Tests Test 05/21/20 15:42 05/22/20 03:00 White Blood Count 13.9 x10^3/uL (4.0-11.0) 11.3 x10^3/uL (4.0-11.0) Red Blood Count 4.56 x10^6/uL (3.50-5.40) 4.02 x10^6/uL (3.50-5.40) Hemoglobin 14.4 g/dL (12.0-15.5) 12.8 g/dL (12.0-15.5) Hematocrit 42.0 % (36.0-47.0) 37.6 % (36.0-47.0) Mean Corpuscular Volume 92 fL (79-100) 94 fL (79-100) Mean Corpuscular Hemoglobin 32 pg (25-35) 32 pg (25-35) Mean Corpuscular Hemoglobin Concent 34 g/dL (31-37) 34 g/dL (31-37) Red Cell Distribution Width 13.0 % (11.5-14.5) 12.8 % (11.5-14.5) Platelet Count 258 x10^3/uL (140-400) 231 x10^3/uL (140-400) Neutrophils (%) (Auto) 87 % (31-73) 95 % (31-73) Lymphocytes (%) (Auto) 6 % (24-48) 4 % (24-48) Monocytes (%) (Auto) 4 % (0-9) 1 % (0-9) Eosinophils (%) (Auto) 3 % (0-3) 0 % (0-3) Basophils (%) (Auto) 1 % (0-3) 0 % (0-3) Neutrophils # (Auto) 12.0 x10^3/uL (1.8-7.7) 10.8 x10^3/uL (1.8-7.7) Lymphocytes # (Auto) 0.8 x10^3/uL (1.0-4.8) 0.4 x10^3/uL (1.0-4.8) Monocytes # (Auto) 0.6 x10^3/uL (0.0-1.1) 0.2 x10^3/uL (0.0-1.1) Eosinophils # (Auto) 0.4 x10^3/uL (0.0-0.7) 0.0 x10^3/uL (0.0-0.7) Basophils # (Auto) 0.1 x10^3/uL (0.0-0.2) 0.0 x10^3/uL (0.0-0.2) Segmented Neutrophils % 86 % (35-66) Band Neutrophils % 3 % (0-9) Lymphocytes % 5 % (24-48) Monocytes % 4 % (0-10) Eosinophils % 2 % (0-5) Toxic Granulation Slight Toxic Vacuolation Slight Platelet Estimate Adequate (ADEQUATE) Maternal Serum HCG Beta Subunit < 1 mIU/mL (0-5) Sodium Level 137 mmol/L (136-145) 137 mmol/L (136-145) Potassium Level 3.5 mmol/L (3.5-5.1) 4.0 mmol/L (3.5-5.1) Chloride Level 102 mmol/L (98-107) 104 mmol/L (98-107) Carbon Dioxide Level 26 mmol/L (21-32) 23 mmol/L (21-32) Anion Gap 9 (6-14) 10 (6-14) Blood Urea Nitrogen 6 mg/dL (7-20) 5 mg/dL (7-20) Creatinine 0.7 mg/dL (0.6-1.0) 0.9 mg/dL (0.6-1.0) Estimated GFR (Cockcroft-Gault) 120.6 90.2 Glucose Level 105 mg/dL (70-99) 305 mg/dL (70-99) Lactic Acid Level 1.0 mmol/L (0.4-2.0) Calcium Level 9.0 mg/dL (8.5-10.1) 8.5 mg/dL (8.5-10.1) Review of Systems Review of Systems: Shortness of breath. Denies nausea, denies vomiting, denies headache, denies chest pain. Assessment and Plan Assessmemt and Plan Problems Medical Problems: (1) Asthma Status: Acute (2) Right lower lobe pneumonia Status: Acute Comment Review of Relevant I have reviewed the following items jennifer (where applicable) has been applied. Medications: Current Medications Medications (Trade) Dose Ordered Sig/Vaughn Route PRN Reason Start Time Stop Time Status Last Admin Dose Admin Sodium Chloride 1,000 ml @ 1,000 mls/hr 1X ONCE IV 05/21/20 15:45 05/21/20 16:44 DC 05/21/20 15:53 Albuterol/ Ipratropium (Duoneb) 9 ml 1X ONCE NEB 05/21/20 15:45 05/21/20 15:46 DC 05/21/20 15:45 Methylprednisolone Sodium Succinate (SOLU-Medrol 125MG VIAL) 125 mg 1X ONCE IV 05/21/20 15:45 05/21/20 15:46 DC 05/21/20 15:52 Magnesium Sulfate 50 ml @ 50 mls/hr 1X ONCE IV 05/21/20 15:45 05/21/20 16:44 DC 05/21/20 15:52 Albuterol Sulfate (Ventolin Neb Soln) 7.5 mg 1X ONCE NEB 05/21/20 16:30 05/21/20 16:31 DC 05/21/20 16:35 Ondansetron HCl (Zofran) 4 mg 1X ONCE IVP 05/21/20 16:30 05/21/20 16:31 DC 05/21/20 16:23 Sodium Chloride 1,000 ml @ 1,000 mls/hr 1X ONCE IV 05/21/20 16:45 05/21/20 17:44 DC 05/21/20 17:28 Azithromycin 250 ml @ 250 mls/hr 1X ONCE IV 05/21/20 16:45 05/21/20 17:44 DC 05/21/20 17:27 Ceftriaxone Sodium (Rocephin) 1 gm 1X ONCE IVP 05/21/20 16:45 05/21/20 16:46 DC 05/21/20 17:26 Acetaminophen/ Hydrocodone Bitart (Lortab 5/325) 1 tab 1X ONCE PO 05/21/20 17:30 05/21/20 17:31 DC 05/21/20 17:27 Methylprednisolone Sodium Succinate (SOLU-Medrol 40MG VIAL) 60 mg QID IV 05/21/20 21:00 05/21/20 21:24 Piperacillin Sod/ Tazobactam Sod 3.375 gm/Sodium Chloride 50 ml @ 100 mls/hr Q6HRS IV 05/22/20 00:00 05/22/20 05:55 Albuterol/ Ipratropium (Combivent Respimat 20-100 Mcg) 2 puff RTQID INH 05/21/20 21:00 05/21/20 21:23 Guaifenesin/ Codeine Phosphate (Robitussin Ac) 5 ml PRN Q4HRS PRN PO COUGH 05/21/20 22:30 05/22/20 00:05 Justifications for Admission Other Justification TESS DO MD May 22, 2020 08:37
[2020-05-22] MEDS: FLUTICASONE/VILANTEROL 200/25 INHALER. INH SCH (08:46)
[2020-05-22] MEDS: IPRATROPIUM/ALBUTEROL 20/100mcg/INH INHALER. INH SCH ×4 (08:46→22:34)
[2020-05-22] MEDS: methylPREDNISolone SOD SUCC PF 40 MG/ML VIAL. IV SCH ×4 (08:48→20:49)
--- NOTE | 2020-05-22 11:01 | PDOC ---
PULMONARY PROGRESS NOTES DATE: 05/22/20 TIME: 10:57 Subjective Feeling much better today remains on N/C oxygen Low grade fever today Vitals Vital Signs Date Time Temp Pulse Resp B/P (MAP) Pulse Ox O2 Delivery O2 Flow Rate FiO2 05/22/20 07:18 98.9 90 20 132/84 (100) 96 Nasal Cannula 2.0 98.9 Comments Pt. seen during Covid pandemic visual exam preformed RRR no accessory muscle use On N/C oxygen No edema No rash ROS: No Nausea, No Chest Pain, No Abdominal Pain, No Increase Cough Labs Laboratory Tests Test 05/21/20 15:42 05/22/20 03:00 White Blood Count 13.9 x10^3/uL (4.0-11.0) 11.3 x10^3/uL (4.0-11.0) Red Blood Count 4.56 x10^6/uL (3.50-5.40) 4.02 x10^6/uL (3.50-5.40) Hemoglobin 14.4 g/dL (12.0-15.5) 12.8 g/dL (12.0-15.5) Hematocrit 42.0 % (36.0-47.0) 37.6 % (36.0-47.0) Mean Corpuscular Volume 92 fL (79-100) 94 fL (79-100) Mean Corpuscular Hemoglobin 32 pg (25-35) 32 pg (25-35) Mean Corpuscular Hemoglobin Concent 34 g/dL (31-37) 34 g/dL (31-37) Red Cell Distribution Width 13.0 % (11.5-14.5) 12.8 % (11.5-14.5) Platelet Count 258 x10^3/uL (140-400) 231 x10^3/uL (140-400) Neutrophils (%) (Auto) 87 % (31-73) 95 % (31-73) Lymphocytes (%) (Auto) 6 % (24-48) 4 % (24-48) Monocytes (%) (Auto) 4 % (0-9) 1 % (0-9) Eosinophils (%) (Auto) 3 % (0-3) 0 % (0-3) Basophils (%) (Auto) 1 % (0-3) 0 % (0-3) Neutrophils # (Auto) 12.0 x10^3/uL (1.8-7.7) 10.8 x10^3/uL (1.8-7.7) Lymphocytes # (Auto) 0.8 x10^3/uL (1.0-4.8) 0.4 x10^3/uL (1.0-4.8) Monocytes # (Auto) 0.6 x10^3/uL (0.0-1.1) 0.2 x10^3/uL (0.0-1.1) Eosinophils # (Auto) 0.4 x10^3/uL (0.0-0.7) 0.0 x10^3/uL (0.0-0.7) Basophils # (Auto) 0.1 x10^3/uL (0.0-0.2) 0.0 x10^3/uL (0.0-0.2) Segmented Neutrophils % 86 % (35-66) Band Neutrophils % 3 % (0-9) Lymphocytes % 5 % (24-48) Monocytes % 4 % (0-10) Eosinophils % 2 % (0-5) Toxic Granulation Slight Toxic Vacuolation Slight Platelet Estimate Adequate (ADEQUATE) Maternal Serum HCG Beta Subunit < 1 mIU/mL (0-5) Sodium Level 137 mmol/L (136-145) 137 mmol/L (136-145) Potassium Level 3.5 mmol/L (3.5-5.1) 4.0 mmol/L (3.5-5.1) Chloride Level 102 mmol/L (98-107) 104 mmol/L (98-107) Carbon Dioxide Level 26 mmol/L (21-32) 23 mmol/L (21-32) Anion Gap 9 (6-14) 10 (6-14) Blood Urea Nitrogen 6 mg/dL (7-20) 5 mg/dL (7-20) Creatinine 0.7 mg/dL (0.6-1.0) 0.9 mg/dL (0.6-1.0) Estimated GFR (Cockcroft-Gault) 120.6 90.2 Glucose Level 105 mg/dL (70-99) 305 mg/dL (70-99) Lactic Acid Level 1.0 mmol/L (0.4-2.0) Calcium Level 9.0 mg/dL (8.5-10.1) 8.5 mg/dL (8.5-10.1) Laboratory Tests Test 05/21/20 15:42 05/22/20 03:00 White Blood Count 13.9 x10^3/uL (4.0-11.0) 11.3 x10^3/uL (4.0-11.0) Red Blood Count 4.56 x10^6/uL (3.50-5.40) 4.02 x10^6/uL (3.50-5.40) Hemoglobin 14.4 g/dL (12.0-15.5) 12.8 g/dL (12.0-15.5) Hematocrit 42.0 % (36.0-47.0) 37.6 % (36.0-47.0) Mean Corpuscular Volume 92 fL (79-100) 94 fL (79-100) Mean Corpuscular Hemoglobin 32 pg (25-35) 32 pg (25-35) Mean Corpuscular Hemoglobin Concent 34 g/dL (31-37) 34 g/dL (31-37) Red Cell Distribution Width 13.0 % (11.5-14.5) 12.8 % (11.5-14.5) Platelet Count 258 x10^3/uL (140-400) 231 x10^3/uL (140-400) Neutrophils (%) (Auto) 87 % (31-73) 95 % (31-73) Lymphocytes (%) (Auto) 6 % (24-48) 4 % (24-48) Monocytes (%) (Auto) 4 % (0-9) 1 % (0-9) Eosinophils (%) (Auto) 3 % (0-3) 0 % (0-3) Basophils (%) (Auto) 1 % (0-3) 0 % (0-3) Neutrophils # (Auto) 12.0 x10^3/uL (1.8-7.7) 10.8 x10^3/uL (1.8-7.7) Lymphocytes # (Auto) 0.8 x10^3/uL (1.0-4.8) 0.4 x10^3/uL (1.0-4.8) Monocytes # (Auto) 0.6 x10^3/uL (0.0-1.1) 0.2 x10^3/uL (0.0-1.1) Eosinophils # (Auto) 0.4 x10^3/uL (0.0-0.7) 0.0 x10^3/uL (0.0-0.7) Basophils # (Auto) 0.1 x10^3/uL (0.0-0.2) 0.0 x10^3/uL (0.0-0.2) Segmented Neutrophils % 86 % (35-66) Band Neutrophils % 3 % (0-9) Lymphocytes % 5 % (24-48) Monocytes % 4 % (0-10) Eosinophils % 2 % (0-5) Toxic Granulation Slight Toxic Vacuolation Slight Platelet Estimate Adequate (ADEQUATE) Maternal Serum HCG Beta Subunit < 1 mIU/mL (0-5) Sodium Level 137 mmol/L (136-145) 137 mmol/L (136-145) Potassium Level 3.5 mmol/L (3.5-5.1) 4.0 mmol/L (3.5-5.1) Chloride Level 102 mmol/L (98-107) 104 mmol/L (98-107) Carbon Dioxide Level 26 mmol/L (21-32) 23 mmol/L (21-32) Anion Gap 9 (6-14) 10 (6-14) Blood Urea Nitrogen 6 mg/dL (7-20) 5 mg/dL (7-20) Creatinine 0.7 mg/dL (0.6-1.0) 0.9 mg/dL (0.6-1.0) Estimated GFR (Cockcroft-Gault) 120.6 90.2 Glucose Level 105 mg/dL (70-99) 305 mg/dL (70-99) Lactic Acid Level 1.0 mmol/L (0.4-2.0) Calcium Level 9.0 mg/dL (8.5-10.1) 8.5 mg/dL (8.5-10.1) Medications Active Scripts Medications Dose Route/Sig Max Daily Dose Days Date Category Advair 250-50 Diskus (Fluticasone/Salmeterol) 1 Each Disk.w.dev 1 Inh IH BID 05/21/20 Reported Albuterol Sulfate Conc Neb Soln (Albuterol Sulfate) 2.5 Mg/0.5 Ml Vial.neb 2.5 Mg NEB PRN Q4HRS PRN 05/21/20 Reported Proair Hfa Inhaler (Albuterol Sulfate) 8.5 Gm Hfa.aer.ad 2 Puff INH PRN Q4HRS PRN 05/21/20 Reported Comments CXR IMPRESSION: Patchy airspace disease in the right lower lung zone concerning for infection. Impression . IMPRESSION: 1. Acute hypoxic respiratory failure secondary to acute asthma exacerbation and pneumonia. The pneumonia could be COVID-19 viral pneumonia versus bacterial pneumonia. 2. Abnormal chest x-ray with faint basal interstitial infiltrates and also a tiny focal consolidation in the right lower lobe. Findings are suggestive of viral pneumonia, but bacterial pneumonia would also be a consideration. COVID-19 is suspected. 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 3. History of asthma as a child. She then outgrew it and then asthma reoccurred in her adult life and has been under suboptimal control. 4. History of tobacco use. Plan . RECOMMENDATIONS: Continue supplemental oxygen to keep sats above 92% Continue COVID-19 isolation. Continue IV Solu-Medrol. Continue empiric antibiotics. Edin SEVILLAI until COVID is ruled out and once COVID ruled out, then we will initiate nebulizers. DVT/GI PPX Discussed with RN. Chart reviewed, imaging studies reviewed and labs reviewed. MARY EVERETT MD May 22, 2020 11:01
[2020-05-22] MEDS: FAMOTIDINE 20 MG TABLET. PO SCH ×2 (12:45→20:48)
[2020-05-22] MEDS: ENOXAPARIN 40 MG/0.4 ML SYRINGE. SQ SCH (17:14)
[2020-05-22] MEDS: LACTOBACILLUS RHAMNOSUS GG 1 CAPSULE. PO SCH (20:48)
[2020-05-23 03:00] VITALS: BP_SYST 114; BP_SYST 123; BP_DIAS 51; BP_DIAS 69
[2020-05-23] MEDS: PIPERACILLIN/TAZOBACTAM 3.375 GM in IV NORMAL SALINE 50ML 50 ML IV SCH (05:49)
[2020-05-23 07:00] VITALS: BP 126/77
[2020-05-23] MEDS: FAMOTIDINE 20 MG TABLET. PO SCH ×2 (09:04→22:11)
[2020-05-23] MEDS: LACTOBACILLUS RHAMNOSUS GG 1 CAPSULE. PO SCH ×2 (09:04→22:11)
[2020-05-23] MEDS: IPRATROPIUM/ALBUTEROL 20/100mcg/INH INHALER. INH SCH (09:04)
[2020-05-23] MEDS: guaiFENesin/CODEINE 100mg/10mg 5 ML LIQUID PO PRN ×2 (09:04→22:12)
[2020-05-23] MEDS: FLUTICASONE/VILANTEROL 200/25 INHALER. INH SCH (09:04)
[2020-05-23] MEDS: methylPREDNISolone SOD SUCC PF 40 MG/ML VIAL. IV SCH (09:04)
--- NOTE | 2020-05-23 09:59 | PDOC ---
PULMONARY PROGRESS NOTES DATE: 05/23/20 TIME: 09:56 Subjective Continues to clinically improve Now on R/A Reports cough, No SOA a-febrile Vitals Vital Signs Date Time Temp Pulse Resp B/P (MAP) Pulse Ox O2 Delivery O2 Flow Rate FiO2 05/23/20 08:00 Room Air 05/23/20 07:00 98.2 80 18 126/77 (93) 94 2.0 98.2 ROS: No Nausea, No Chest Pain, No Abdominal Pain, No Increase Cough General: Alert, Oriented X4 Lungs: Clear Cardiovascular: S1, S2 Abdomen: Soft, Non-tender Neuro Exam: Alert Extremities: No Edema Skin: Warm, Dry Labs Laboratory Tests Test 05/21/20 15:42 05/21/20 17:37 05/22/20 03:00 White Blood Count 13.9 x10^3/uL (4.0-11.0) 11.3 x10^3/uL (4.0-11.0) Red Blood Count 4.56 x10^6/uL (3.50-5.40) 4.02 x10^6/uL (3.50-5.40) Hemoglobin 14.4 g/dL (12.0-15.5) 12.8 g/dL (12.0-15.5) Hematocrit 42.0 % (36.0-47.0) 37.6 % (36.0-47.0) Mean Corpuscular Volume 92 fL (79-100) 94 fL (79-100) Mean Corpuscular Hemoglobin 32 pg (25-35) 32 pg (25-35) Mean Corpuscular Hemoglobin Concent 34 g/dL (31-37) 34 g/dL (31-37) Red Cell Distribution Width 13.0 % (11.5-14.5) 12.8 % (11.5-14.5) Platelet Count 258 x10^3/uL (140-400) 231 x10^3/uL (140-400) Neutrophils (%) (Auto) 87 % (31-73) 95 % (31-73) Lymphocytes (%) (Auto) 6 % (24-48) 4 % (24-48) Monocytes (%) (Auto) 4 % (0-9) 1 % (0-9) Eosinophils (%) (Auto) 3 % (0-3) 0 % (0-3) Basophils (%) (Auto) 1 % (0-3) 0 % (0-3) Neutrophils # (Auto) 12.0 x10^3/uL (1.8-7.7) 10.8 x10^3/uL (1.8-7.7) Lymphocytes # (Auto) 0.8 x10^3/uL (1.0-4.8) 0.4 x10^3/uL (1.0-4.8) Monocytes # (Auto) 0.6 x10^3/uL (0.0-1.1) 0.2 x10^3/uL (0.0-1.1) Eosinophils # (Auto) 0.4 x10^3/uL (0.0-0.7) 0.0 x10^3/uL (0.0-0.7) Basophils # (Auto) 0.1 x10^3/uL (0.0-0.2) 0.0 x10^3/uL (0.0-0.2) Segmented Neutrophils % 86 % (35-66) Band Neutrophils % 3 % (0-9) Lymphocytes % 5 % (24-48) Monocytes % 4 % (0-10) Eosinophils % 2 % (0-5) Toxic Granulation Slight Toxic Vacuolation Slight Platelet Estimate Adequate (ADEQUATE) Maternal Serum HCG Beta Subunit < 1 mIU/mL (0-5) Sodium Level 137 mmol/L (136-145) 137 mmol/L (136-145) Potassium Level 3.5 mmol/L (3.5-5.1) 4.0 mmol/L (3.5-5.1) Chloride Level 102 mmol/L (98-107) 104 mmol/L (98-107) Carbon Dioxide Level 26 mmol/L (21-32) 23 mmol/L (21-32) Anion Gap 9 (6-14) 10 (6-14) Blood Urea Nitrogen 6 mg/dL (7-20) 5 mg/dL (7-20) Creatinine 0.7 mg/dL (0.6-1.0) 0.9 mg/dL (0.6-1.0) Estimated GFR (Cockcroft-Gault) 120.6 90.2 Glucose Level 105 mg/dL (70-99) 305 mg/dL (70-99) Lactic Acid Level 1.0 mmol/L (0.4-2.0) Calcium Level 9.0 mg/dL (8.5-10.1) 8.5 mg/dL (8.5-10.1) Coronavirus (PCR) Not detected (Not Detected) Medications Active Scripts Medications Dose Route/Sig Max Daily Dose Days Date Category Advair 250-50 Diskus (Fluticasone/Salmeterol) 1 Each Disk.w.dev 1 Inh IH BID 05/21/20 Reported Albuterol Sulfate Conc Neb Soln (Albuterol Sulfate) 2.5 Mg/0.5 Ml Vial.neb 2.5 Mg NEB PRN Q4HRS PRN 05/21/20 Reported Proair Hfa Inhaler (Albuterol Sulfate) 8.5 Gm Hfa.aer.ad 2 Puff INH PRN Q4HRS PRN 05/21/20 Reported Comments CXR IMPRESSION: Patchy airspace disease in the right lower lung zone concerning for infection. Impression . IMPRESSION: 1. Acute hypoxic respiratory failure secondary to acute asthma exacerbation and pneumonia. The pneumonia could be COVID-19 viral pneumonia versus bacterial pneumonia.---improve 2. Abnormal chest x-ray with faint basal interstitial infiltrates and also a tiny focal consolidation in the right lower lobe. Findings are suggestive of viral pneumonia, but bacterial pneumonia would also be a consideration. COVID-19 is suspected. 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 3. History of asthma as a child. She then outgrew it and then asthma reoccurred in her adult life and has been under suboptimal control. 4. History of tobacco use. Plan . RECOMMENDATIONS: Now on room air COVID-19 negative D/C IV steroids, start po taper Continue empiric antibiotics.- will switch to po Nebs DVT/GI PPX ok to D/C home from pulmonary stand point we will see PRN Thank you Discussed with RN. Chart reviewed, imaging studies reviewed and labs reviewed. MARY EVERETT MD May 23, 2020 09:59
[2020-05-23] MEDS: ALBUTEROL SULFATE 2.5 MG/3 ML NEBU. NEB SCH ×3 (10:32→19:44)
[2020-05-23 10:49] VITALS: BP 144/80
--- NOTE | 2020-05-23 13:11 | PDOC ---
[facility] PROGRESS NOTE Date of Service DOS: DATE: 05/23/20 TIME: 13:04 Chief Complaint Chief Complaint Asthma exacerbation Right lower lobe pneumonia History of smoking daily History of Present Illness History of Present Illness 05/23/2020 Patient seen and examined in room Patient appeared tired but states she is feeling better DW RN Patient evaluated bedside. She is currently breathing well on 2 L nasal cannula. She denies any fevers today. COVID-19 results pending. Vitals/I&O Vitals/I&O: Vital Signs Date Time Temp Pulse Resp B/P (MAP) Pulse Ox O2 Delivery O2 Flow Rate FiO2 05/23/20 10:49 98.4 88 18 144/80 (101) 96 Nasal Cannula 2.0 98.4 I & O 05/22/20 05/22/20 05/23/20 15:00 23:00 07:00 Intake Total 200 ml 200 ml 420 ml Balance 200 ml 200 ml 420 ml Physical Exam General: Alert, Oriented X3, Cooperative Heart: Regular rate Lungs: Wheezing (Greater on left than right) Abdomen: Normal bowel sounds, Soft Extremities: No clubbing, No cyanosis Skin: No rashes Review of Systems Review of Systems: No nausea Patient reports continued difficulty breathing Assessment and Plan Assessmemt and Plan Assessment: Asthma exacerbation Right lower lobe pneumonia History of smoking daily Plan: 1) Continue steroids 2) IV antibiotics 3) O2 to 1 liter nasal cannula 4) DVT prophylaxis 5) Home meds 6) Full code 7) Appreciate subspecialty input Comment Review of Relevant I have reviewed the following items jennifer (where applicable) has been applied. Medications: Current Medications Medications (Trade) Dose Ordered Sig/Vaughn Route PRN Reason Start Time Stop Time Status Last Admin Dose Admin Enoxaparin Sodium (Lovenox 40mg Syringe) 40 mg Q24H SQ 05/22/20 16:00 05/22/20 17:14 Lactobacillus Rhamnosus (Culturelle) 1 cap BID PO 05/22/20 21:00 05/23/20 09:04 Albuterol Sulfate (Ventolin Neb Soln) 2.5 mg RTQID NEB 05/23/20 12:00 05/23/20 10:32 Justifications for Admission Other Justification CASTRAMONE,NIAL K III DO May 23, 2020 13:11
[2020-05-23 15:00] VITALS: BP 124/80
[2020-05-23] MEDS: ENOXAPARIN 40 MG/0.4 ML SYRINGE. SQ SCH (16:07)
[2020-05-23 19:00] VITALS: BP 126/78
[2020-05-23] MEDS: AMOXICILLIN/K CLAV 875/125MG TABLET. PO SCH (22:11)
[2020-05-23 23:00] VITALS: BP 129/85
[2020-05-24 04:10] VITALS: BP 107/65
[2020-05-24 07:00] VITALS: BP 129/89
[2020-05-24] MEDS: ALBUTEROL SULFATE 2.5 MG/3 ML NEBU. NEB SCH ×2 (07:21→11:27)
[2020-05-24] MEDS: LACTOBACILLUS RHAMNOSUS GG 1 CAPSULE. PO SCH (08:16)
[2020-05-24] MEDS: FLUTICASONE/VILANTEROL 200/25 INHALER. INH SCH (08:16)
[2020-05-24] MEDS: FAMOTIDINE 20 MG TABLET. PO SCH (08:16)
[2020-05-24] MEDS: AMOXICILLIN/K CLAV 875/125MG TABLET. PO SCH (08:16)
[2020-05-24] MEDS ORDERED: predniSONE 10 MG TABLET PO SCH (09:00)
--- NOTE | 2020-05-24 09:33 | NUR ---
SW following. Discussed with RN, pt from home, room air, regular diet. Pt now on oral abx. RN advised no SW needs, anticipates discharge home today with self care. Med Assist following for self pay status.
[2020-05-24 10:39] VITALS: BP 112/75
[2020-05-24] MEDS ORDERED: PRED-220 PO (11:08)
[2020-05-24] MEDS ORDERED: PRED5TAB PO (11:08)
[2020-05-24] MEDS ORDERED: AMOX1TAB11 PO (11:08)
[2020-05-24] MEDS ORDERED: PRED20TA PO (11:08)
--- NOTE | 2020-05-24 11:09 | DISCH ---
DISCHARGE INSTRUCTIONS Condition on Discharge Condition on Discharge: Stable Activity After Discharge Activity Instructions for Disc: Activity as tolerated Exercise Instruction after Dis: Walk 30 min, 3 x per week Contacting the DRGrisel after DC Call your doctor for: If your condition worsens Follow-Up Follow up with: PCP within 1 week of discharge DANII KAISER MD May 24, 2020 11:09
--- NOTE | 2020-05-24 13:35 | NUR ---
Pt discharge paperwork was given and went over verbally together. Took pt's IV out. Pt was stable during DC.
--- NOTE | 2020-05-24 17:45 | PDOC3 ---
[facility]-Discharge Summary Date of Admission: Date of Admission: May 21, 2020 Date of Discharge: Date of Discharge: May 24, 2020 Admission Diagnosis: Admitting Diagnosis: Respiratory failure, multifactorial including possible COVID-19. Right lower lobe pneumonia and asthma. 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 Basically, she has a previous history of asthma and smokes daily. She called the ambulance today because she was short of breath. They gave her some breathing treatments and they left. She then called them back a couple of hours later. She states normally environmental exposures are what triggers her asthma. While in the ER, we got a chest x-ray showing a possible right lower lobe pneumonia. She rates her symptoms at 9/10. She has associated weakness, has been occurring for several hours, moving makes it worse, sitting still makes it better. She tried increasing her home meds, but that did not work. I discussed the case with the ER physician. We are going to admit the patient. I am going to consult Dr. Hassan of the Pulmonary Service. Patient was admitted for further care and IV ABx and steroids. Patient improved and oxygenated well on RA. She will be discharged with PO Augmentin and a prednisone taper. The rest of her hospital course was uneventful. Smoking cessation: Total time spent was > 12 minutes in face to face counseling. Patient has agreed to consider nicotine patches/gum or to start on Varenicline when discharged. Disposition: Disposition/Orders: D/C to Home Activity: Activity: Resume previous activity Diet: Diet: Regular Medications: Home Meds Active Scripts Prednisone (PREDNISONE) 5 Mg Tablet, 5 MG PO DAILY for asthma for 2 Days, #2 TAB Prov:DANII KAISER MD 05/24/20 Prednisone (PREDNISONE ) 10 Mg Tablet, 10 MG PO DAILY for asthma for 2 Days, #2 TAB Prov:DANII KAISER MD 05/24/20 Prednisone (PREDNISONE) 20 Mg Tablet, 20 MG PO DAILY for asthma for 2 Days, #2 TAB Prov:DANII KAISER MD 05/24/20 Prednisone (PREDNISONE ) 10 Mg Tablet, 30 MG PO DAILY for asthma exac for 1 Day, #3 TAB Prov:DANII KAISER MD 05/24/20 Amoxicillin/Potassium Clav (AMOX TR-K CLV 875-125 MG TAB) 1 Each Tablet, 1 TAB PO BID for pneumonia for 5 Days, #10 TAB Prov:DANII KAISER MD 05/24/20 Reported Medications Fluticasone/Salmeterol (ADVAIR 250-50 DISKUS) 1 Each Disk.w.dev, 1 INH IH BID for asthma, INHALER 05/21/20 Albuterol Sulfate (ALBUTEROL SULFATE CONC NEB SOLN) 2.5 Mg/0.5 Ml Vial.neb, 2.5 MG NEB PRN Q4HRS PRN for SHORTNESS OF BREATH, EACH 0 Refills 05/21/20 Albuterol Sulfate (PROAIR HFA INHALER) 8.5 Gm Hfa.aer.ad, 2 PUFF INH PRN Q4HRS PRN for SHORTNESS OF BREATH, INHALER 0 Refills 05/21/20 Scheduled Amoxicillin/Potassium Clav (Amox Tr-K Clv 875-125 Mg Tab), 1 TAB PO BID Fluticasone/Salmeterol (Advair 250-50 Diskus), 1 INH IH BID, (Reported) Prednisone (Prednisone ), 30 MG PO DAILY Prednisone (Prednisone), 20 MG PO DAILY Prednisone (Prednisone ), 10 MG PO DAILY Prednisone (Prednisone), 5 MG PO DAILY Scheduled PRN Albuterol Sulfate (Proair Hfa Inhaler), 2 PUFF INH PRN Q4HRS PRN for SHORTNESS OF BREATH, (Reported) Albuterol Sulfate (Albuterol Sulfate Conc Neb Soln), 2.5 MG NEB PRN Q4HRS PRN for SHORTNESS OF BREATH, (Reported) Total Time: Total Time: Total time spent was 35 minutes in preparing scripts, discharge planning with SW and RN, and preparing this discharge summary. Patient seen and examined on day of discharge. Justicifation of Admission Dx: Justifications for Admission: Justification of Admission Dx: Yes DANII KAISER MD May 24, 2020 17:45
[2020-05-26] MEDS ORDERED: predniSONE 20 MG TABLET PO SCH (09:00)
[2020-05-28] MEDS ORDERED: predniSONE 10 MG TABLET PO SCH (09:00)
[2020-05-30] MEDS ORDERED: predniSONE 5 MG TABLET PO SCH (09:00)
== END 2020-05-24 13:44 | disposition home or self-care (01) | DRG 193 ==
LOC: ER 15:26 → 6 SOUTH 17:59 → 5 NORTH 05-22 21:41
PROVIDERS: ADMIT Internal Medicine; ATTEND Internal Medicine
DX: J18.9 Pneumonia, unspecified organism (principal); J96.01 Acute respiratory failure with hypoxia; J45.901 Unspecified asthma with (acute) exacerbation; Z83.3 Family history of diabetes mellitus; Z87.09 Personal history of other diseases of the respiratory system; F17.210 Nicotine dependence, cigarettes, uncomplicated; Z79.899 Other long term (current) drug therapy; Z20.828 Contact with and (suspected) exposure to other viral communicable diseases; Z71.6 Tobacco abuse counseling
CPT/HCPCS: 36415; 71045; 80048; 83605; 84702; 85007; 85025; 87040; 93005; 94640; 94760; 96361; 96365; 96366; 96367; 96375; J0456; J0696; J1650; J2405; J2543; J2920; J2930; J3475; J7030; J7512; 99285-25; G0378; J7613; U0003-CS